=== PATIENT | female | born 1965 | race Caucasian/White ===

== ENCOUNTER → 2025-09-01 | Outpatient (CLI) | payer OTHER, SELFPAY ==
--- NOTE | 2025-09-01 14:48 | XR_ITS ---
EXAMINATION: Ankle, left 3 views Technique: Ankle AP, oblique, lateral 3 views Date and time of exam: August 2017, 2024, 1506 hours INDICATIONS: Injury to the ankle last night, ankle pain. FINDINGS: Lateral malleolar soft tissue swelling No acute fracture No ankle dislocation Small plantar bony calcaneal spur IMPRESSION: No acute fracture
== END | disposition home or self-care (01) ==
PROVIDERS: PCP Family Medicine; Referring Provider Family Medicine; Visit Provider Family Medicine
DX: S82.892A Other fracture of left lower leg, initial encounter for closed fracture (principal); X58.XXXA Exposure to other specified factors, initial encounter
CPT/HCPCS: 73610